=== PATIENT | female | born 1960 | race Caucasian/White ===

== ENCOUNTER 2021-03-24 00:02 | Inpatient (IN) | payer MEDICARE ==
[~2021-03-24] VITALS: Ht 165.1 cm; Wt 104.3 kg
[~2021-03-24 00:02] MED LIST: PANTOPRAZOLE SO20 MG PO
[2021-03-24 00:49] LABS: HEMOGLOBIN 13.3 gm/dl (12.3-15.3); RED BLOOD COUNT 4.15 M/UL (4.00-5.10)
[2021-03-24] MEDS ORDERED: K-TAB ER10 MEQ PO (14:26)
[2021-03-24] MEDS ORDERED: BUMETANIDE2 MG PO (14:26)
[2021-03-24] MEDS ORDERED: AMITRIPTYLINE H50 MG PO (14:26)
[2021-03-24] MEDS ORDERED: CLONAZEPAM1 MG PO (14:27)
[2021-03-24] MEDS ORDERED: CATAPRES 0.1MG0.1 MG PO (14:27)
[2021-03-24] MEDS ORDERED: GABAPENTIN800 MG PO (14:28)
[2021-03-24] MEDS ORDERED: PROZAC 20 MG CA20 MG PO (14:28)
[2021-03-24] MEDS ORDERED: OMEPRAZOLE20 M1 PO (14:28)
[2021-03-24 23:46] LABS: BORDETELLA PARAPERTUSSIS Not Detected (Not Detectd); BORDETELLA PERTUSSIS Not Detected (Not Detectd); CHLAMYDIA PNEUMONIAE Not Detected (Not Detectd); CORONAVIRUS HKU1 Not Detected (Not Detectd); CORONAVIRUS NL63 Not Detected (Not Detectd); CORONAVIRUS OC43 Not Detected (Not Detectd); CORONOAVIRUS 229E Not Detected (Not Detectd); HUMAN METAPNEUMOVIRUS Not Detected (Not Detectd); HUMAN RHINOVIRUS/ENTEROVIRUS Not Detected (Not Detectd); INFLUENZA A Not Detected (Not Detectd); INFLUENZA B Not Detected (Not Detectd); MYCOPLASMA PNEUMONIAE Not Detected (Not Detectd); PARAINFLUENZA VIRUS 1 Not Detected (Not Detectd); PARAINFLUENZA VIRUS 2 Not Detected (Not Detectd); PARAINFLUENZA VIRUS 3 Not Detected (Not Detectd); PARAINFLUENZA VIRUS 4 Not Detected (Not Detectd); RESPIRATORY SYNCYTIAL VIRUS Not Detected (Not Detectd)
[2021-03-25 00:51] LABS: SARS-CoV-2 NOT DETECTED (Not Detectd)
[2021-03-25 05:14] LABS: HEMOGLOBIN 12.9 gm/dl (12.3-15.3); RED BLOOD COUNT 4.05 M/UL (4.00-5.10); WHITE BLOOD COUNT 12.2 K/UL (4.5-11.0)
[2021-03-26 04:37] LABS: HEMOGLOBIN 11.8 gm/dl (12.3-15.3); RED BLOOD COUNT 3.81 M/UL (4.00-5.10)
[2021-03-26 04:43] LABS: WHITE BLOOD COUNT 6.5 K/UL (4.5-11.0)
[2021-03-26 04:49] LABS: BUN/CREATININE RATIO 36 (0-10)
[2021-03-27] MEDS ORDERED: GABAPENTIN800 MG PO (11:42)
[2021-03-28 04:55] LABS: BUN/CREATININE RATIO 34 (0-10)
[2021-03-28] MEDS ORDERED: LEVOFLOXACIN750 MG PO (10:11)
[2021-03-28] MEDS ORDERED: PROAIR HFA8.5 GM INH (10:16)
[2021-03-28] MEDS ORDERED: NEBULIZER UNIT NEB (10:16)
[2021-03-28] MEDS ORDERED: IPRAT-ALBUT 0.5-3 ML INH (10:16)
[2021-03-28] MEDS ORDERED: MEDROL DOSEPAK 24 MG PO (10:16)
[2021-03-28] MEDS ORDERED: PULMICORT FLEX90 MCG INH (10:16)
[2021-03-28] MEDS ORDERED: AMLODIPINE BESYL5 MG PO (10:38)
== END 2021-03-28 14:50 | disposition home health service (06) | DRG 193 ==
LOC: ER1 00:02 → PROG CARE 03:22 → CDU 03:22 → PROG CARE 19:37
PROVIDERS: Student in an Organized Health Care Education/Training Program; ADMIT Internal Medicine
PROC: 5A09457 Assistance with Respiratory Ventilation, 24-96 Consecutive Hours, Continuous Positive Airway Pressure (ICD-10-PCS; principal; 2021-03-24)
DX: J15.9 Unspecified bacterial pneumonia (principal); I21.A1 Myocardial infarction type 2; G92 Toxic encephalopathy; J96.21 Acute and chronic respiratory failure with hypoxia; J96.22 Acute and chronic respiratory failure with hypercapnia; E66.2 Morbid (severe) obesity with alveolar hypoventilation; J44.0 Chronic obstructive pulmonary disease with (acute) lower respiratory infection; N17.9 Acute kidney failure, unspecified; N30.00 Acute cystitis without hematuria; J44.1 Chronic obstructive pulmonary disease with (acute) exacerbation; I12.0 Hypertensive chronic kidney disease with stage 5 chronic kidney disease or end stage renal disease; Z20.822 Contact with and (suspected) exposure to COVID-19; G47.33 Obstructive sleep apnea (adult) (pediatric); I27.20 Pulmonary hypertension, unspecified; N18.30 Chronic kidney disease, stage 3 unspecified; F17.200 Nicotine dependence, unspecified, uncomplicated; B96.4 Proteus (mirabilis) (morganii) as the cause of diseases classified elsewhere; R73.9 Hyperglycemia, unspecified; T38.0X5A Adverse effect of glucocorticoids and synthetic analogues, initial encounter; D53.9 Nutritional anemia, unspecified; Z93.3 Colostomy status; Z98.890 Other specified postprocedural states; Z88.0 Allergy status to penicillin; Z90.49 Acquired absence of other specified parts of digestive tract; Z93.0 Tracheostomy status; Z82.49 Family history of ischemic heart disease and other diseases of the circulatory system; Z79.899 Other long term (current) drug therapy; Z79.52 Long term (current) use of systemic steroids; Z68.38 Body mass index [BMI] 38.0-38.9, adult
CPT/HCPCS: ECHO; 36415; 36600; 70450; 71045; 71046; 71250; 72125; 80048; 80053; 80202; 80307; 81001; 82550; 82553; 82607; 82746; 82803; 83036; 83605; 83874; 83880; 83921; 84439; 84443; 84484; 85025; 85027; 87040; 87077; 87086; 87186; 87633; 93005; 93306; 94640; 94660; 94760; 96374; 97116-GP-CQ; 97162; 97530; 99285; J0456; J0692; J0696; J1650; J1940; J2920; J3370; J7030; J7070; U0002

== ENCOUNTER 2021-04-19 20:58 | Inpatient (IN) | payer MEDICARE ==
[~2021-04-19] VITALS: Ht 165.1 cm; Wt 104.3 kg
[~2021-04-19 20:58] MED LIST changes: +AMITRIPTYLINE H50 MG PO; +AMLODIPINE BESYL5 MG PO; +BUMETANIDE2 MG PO; +CATAPRES 0.1MG0.1 MG PO; +CLONAZEPAM1 MG PO; +GABAPENTIN800 MG PO; +IPRAT-ALBUT 0.5-3 ML INH; +K-TAB ER10 MEQ PO; +LEVOFLOXACIN750 MG PO; +MEDROL DOSEPAK 24 MG PO; +NEBULIZER UNIT NEB; +OMEPRAZOLE20 M1 PO; +PROAIR HFA8.5 GM INH; +PROZAC 20 MG CA20 MG PO; +PULMICORT FLEX90 MCG INH
[2021-04-19 21:48] LABS: HEMOGLOBIN 15.7 gm/dl (12.3-15.3); RED BLOOD COUNT 4.85 M/UL (4.00-5.10); WHITE BLOOD COUNT 8.8 K/UL (4.5-11.0)
[2021-04-19 22:25] LABS: BUN/CREATININE RATIO 32 (0-10)
[2021-04-20 02:01] LABS: WHITE BLOOD COUNT 7.6 K/UL (4.5-11.0)
[2021-04-20 02:04] LABS: HEMOGLOBIN 13.7 gm/dl (12.3-15.3); RED BLOOD COUNT 4.34 M/UL (4.00-5.10)
[2021-04-20] MEDS ORDERED: PREDNISONE10 MG PO (03:01)
[2021-04-20] MEDS ORDERED: METOCLOPRAMIDE10 MG PO (03:01)
--- NOTE | 2021-04-20 22:44 | NUR ---
2230- CHECKED RESIDUAL ON TUBE FEED, 10ML WITHDREW AND REPLACED VIA OG. INCREASED TUBE FEEDING FROM 25ML/HR TO 30ML/HR. WILL CONTINUE TO MONITOR.
[2021-04-21 04:39] LABS: HEMOGLOBIN 11.6 gm/dl (12.3-15.3); RED BLOOD COUNT 3.67 M/UL (4.00-5.10); WHITE BLOOD COUNT 5.5 K/UL (4.5-11.0)
[2021-04-22 05:34] LABS: HEMOGLOBIN 12.3 gm/dl (12.3-15.3); RED BLOOD COUNT 3.88 M/UL (4.00-5.10); WHITE BLOOD COUNT 5.5 K/UL (4.5-11.0)
[2021-04-22 06:41] LABS: BUN/CREATININE RATIO 47 (0-10)
[2021-04-23 04:54] LABS: HEMOGLOBIN 12.5 gm/dl (12.3-15.3); RED BLOOD COUNT 3.92 M/UL (4.00-5.10); WHITE BLOOD COUNT 4.8 K/UL (4.5-11.0)
[2021-04-23 05:18] LABS: BUN/CREATININE RATIO 48 (0-10)
[2021-04-24 04:58] LABS: HEMOGLOBIN 13.5 gm/dl (12.3-15.3); RED BLOOD COUNT 4.25 M/UL (4.00-5.10)
[2021-04-24 04:59] LABS: WHITE BLOOD COUNT 6.8 K/UL (4.5-11.0)
[2021-04-24 05:22] LABS: BUN/CREATININE RATIO 33 (0-10)
[2021-04-25 05:35] LABS: HEMOGLOBIN 13.4 gm/dl (12.3-15.3); RED BLOOD COUNT 4.26 M/UL (4.00-5.10); WHITE BLOOD COUNT 8.5 K/UL (4.5-11.0)
[2021-04-25 05:58] LABS: BUN/CREATININE RATIO 26 (0-10)
[2021-04-26 09:28] LABS: HEMOGLOBIN 13.3 gm/dl (12.3-15.3); RED BLOOD COUNT 4.26 M/UL (4.00-5.10); WHITE BLOOD COUNT 7.9 K/UL (4.5-11.0)
[2021-04-26 10:06] LABS: BUN/CREATININE RATIO 20 (0-10)
--- NOTE | 2021-04-27 04:19 | NUR ---
pt has not voided bladderscan performed with result of 241. educated pt on fluid consumption to help produce urine.
[2021-04-27 09:29] LABS: HEMOGLOBIN 14.2 gm/dl (12.3-15.3); RED BLOOD COUNT 4.48 M/UL (4.00-5.10); WHITE BLOOD COUNT 9.7 K/UL (4.5-11.0)
[2021-04-27 09:45] LABS: BUN/CREATININE RATIO 20 (0-10)
[2021-04-28 07:53] LABS: HEMOGLOBIN 11.8 gm/dl (12.3-15.3); RED BLOOD COUNT 3.85 M/UL (4.00-5.10); WHITE BLOOD COUNT 7.1 K/UL (4.5-11.0)
[2021-04-28 08:33] LABS: BUN/CREATININE RATIO 28 (0-10)
--- NOTE | 2021-04-28 13:50 | NUR ---
REPORT CALLED TO [facility] AT 1350 TO [facility].
== END 2021-04-28 15:30 | disposition home health service (06) | DRG 208 ==
LOC: ER1 20:58 → CDU 23:57 → MED SURG 4 23:57 → CCU 23:57 → MED SURG 4 04-24 14:53
PROVIDERS: Emergency Medicine; Internal Medicine; Internal Medicine Infectious Disease; ADMIT Internal Medicine
PROC: 0BH17EZ Insertion of Endotracheal Airway into Trachea, Via Natural or Artificial Opening (ICD-10-PCS; principal; 2021-04-19)
PROC: 5A1945Z Respiratory Ventilation, 24-96 Consecutive Hours (ICD-10-PCS; 2021-04-19)
DX: J96.22 Acute and chronic respiratory failure with hypercapnia (principal); I50.33 Acute on chronic diastolic (congestive) heart failure; E66.2 Morbid (severe) obesity with alveolar hypoventilation; J44.1 Chronic obstructive pulmonary disease with (acute) exacerbation; J44.0 Chronic obstructive pulmonary disease with (acute) lower respiratory infection; G93.49 Other encephalopathy; Z68.41 Body mass index [BMI] 40.0-44.9, adult; E86.0 Dehydration; J96.21 Acute and chronic respiratory failure with hypoxia; I27.20 Pulmonary hypertension, unspecified; E87.5 Hyperkalemia; F32.A Depression, unspecified; K21.9 Gastro-esophageal reflux disease without esophagitis; F17.210 Nicotine dependence, cigarettes, uncomplicated; R53.81 Other malaise; F41.9 Anxiety disorder, unspecified; I11.0 Hypertensive heart disease with heart failure; Z91.14 Patient's other noncompliance with medication regimen; Z93.0 Tracheostomy status; Z90.49 Acquired absence of other specified parts of digestive tract; Z88.0 Allergy status to penicillin
CPT/HCPCS: 31500; 36415; 36600; 51702; 70450; 71045; 80048; 80053; 80202; 80307; 81001; 82140; 82550; 82553; 82803; 82810; 83605; 83690; 83735; 83874; 83880; 84100; 84439; 84443; 84484; 84550; 85025; 85027; 85610; 85730; 87040; 87070; 87086; 87205; 93005; 94002; 94003; 94640; 94660; 94664; 94760; 96365; 96375; 97116-GP-CQ; 97162; 97166; 97530-GP-CQ; 97535; 99285; C9113; G0480; J0692; J1120; J1205; J1650; J2250; J2704; J2920; J2930; J3370; J7030; J7070; U0002

== ENCOUNTER 2021-07-22 20:50 | Inpatient (IN) | payer MEDICARE ==
[~2021-07-22] VITALS: Ht 165.1 cm; Wt 130.4 kg
[~2021-07-22 20:50] MED LIST changes: +METOCLOPRAMIDE10 MG PO; +PREDNISONE10 MG PO
[2021-07-22 21:32] LABS: HEMOGLOBIN 13.5 gm/dl (12.3-15.3); RED BLOOD COUNT 4.33 M/UL (4.00-5.10); WHITE BLOOD COUNT 10.9 K/UL (4.5-11.0)
[2021-07-22 21:37] LABS: BUN/CREATININE RATIO 23 (0-10)
[2021-07-23 16:16] LABS: ACINETOBACTER BAUMANNII Not Detected (Negative); CANDIDA ALBICANS Not Detected (Negative); CANDIDA KRUSEI Not Detected (Negative); CANDIDA TROPICALIS Not Detected (Negative); ENTEROCOCCUS Not Detected (Negative); ESCHERICHIA COLI Not Detected (Negative); HAEMOPHILUS INFLUENZAE Not Detected (Negative); KLEBSIELLA OXYTOCA Not Detected (Negative); KLEBSIELLA PNEUMONIAE Not Detected (Negative); KPC-CARBAPENEM-RESISTANCE GENE Not Detected (Negative); PROTEUS Not Detected (Negative); PSEUDOMONAS AERUGINOSA Not Detected (Negative); SERRATIA MARCESANS Not Detected (Negative); STAPHYLOCOCCUS AUREUS Not Detected (Negative); STREP AGALACTIAE (GROUP B) Not Detected (Negative); STREP PYOGENES (GROUP A) Not Detected (Negative); STREPTOCOCCUS Not Detected (Negative); vanA/B (VANCOMYCIN RESIST GENE Not Detected (Negative)
[2021-07-23] MEDS ORDERED: GABAPENTIN400 MG PO (16:44)
[2021-07-23] MEDS ORDERED: VITAMIN D21250 MCG PO (16:45)
[2021-07-23] MEDS ORDERED: PREDNISONE 10 M10 MG PO (16:45)
[2021-07-23 17:37] LABS: STAPHYLOCOCCUS DETECTED (Negative); mecA (METHICILLIN RESIST GENE DETECTED (Negative)
[2021-07-24 03:30] LABS: HEMOGLOBIN 13.6 gm/dl (12.3-15.3); RED BLOOD COUNT 4.23 M/UL (4.00-5.10)
[2021-07-25 03:54] LABS: HEMOGLOBIN 13.1 gm/dl (12.3-15.3); RED BLOOD COUNT 4.21 M/UL (4.00-5.10)
[2021-07-30 03:31] LABS: RED BLOOD COUNT 3.6 M/UL (4.00-5.10); WHITE BLOOD COUNT 8.4 K/UL (4.5-11.0)
[2021-07-30 03:36] LABS: HEMOGLOBIN 11.1 gm/dl (12.3-15.3)
[2021-07-30] MEDS ORDERED: BUDESONIDE0.5 MG/2 M NEB (14:30)
[2021-07-30] MEDS ORDERED: MEDROL DOSEPAK 24 MG PO (14:30)
[2021-07-30] MEDS ORDERED: IPRAT-ALBUT 0.5-3 ML NEB (14:30)
[2021-07-30] MEDS ORDERED: BROVANA15 MCG/2 M NEB (14:30)
--- NOTE | 2021-07-30 15:38 | NUR ---
PT TRILOGY BEING DELIVERED AT 1600 TO PT RESIDENCE PER ENA ANANTH [employer] SUPPLY AND COSMETOLOGY EDUCATOR. PORTABLE O2 DELIVERED TO PT ROOM. PT GIVEN F/U INSTRCTIONS AND DC EDUCATION. FAMILY PRESENT IN ROOM TO TRANSPORT PT HOME.
== END 2021-07-30 16:00 | disposition home or self-care (01) | DRG 291 ==
LOC: ER1 20:50 → CDU 07-23 00:54 → PROG CARE 07-23 00:54
PROVIDERS: Emergency Medicine; Internal Medicine; ADMIT Internal Medicine
PROC: 5A09357 Assistance with Respiratory Ventilation, Less than 24 Consecutive Hours, Continuous Positive Airway Pressure (ICD-10-PCS; 2021-07-23)
PROC: 5A0945A Assistance with Respiratory Ventilation, 24-96 Consecutive Hours, High Flow/Velocity Cannula (ICD-10-PCS; principal; 2021-07-24)
PROC: 5A0935Z Assistance with Respiratory Ventilation, Less than 24 Consecutive Hours (ICD-10-PCS; 2021-07-26)
DX: I11.0 Hypertensive heart disease with heart failure (principal); I50.33 Acute on chronic diastolic (congestive) heart failure; Z20.822 Contact with and (suspected) exposure to COVID-19; J96.21 Acute and chronic respiratory failure with hypoxia; J96.22 Acute and chronic respiratory failure with hypercapnia; G93.41 Metabolic encephalopathy; J44.1 Chronic obstructive pulmonary disease with (acute) exacerbation; N30.00 Acute cystitis without hematuria; N17.9 Acute kidney failure, unspecified; E66.2 Morbid (severe) obesity with alveolar hypoventilation; Z68.42 Body mass index [BMI] 45.0-49.9, adult; J44.9 Chronic obstructive pulmonary disease, unspecified; F41.9 Anxiety disorder, unspecified; F32.A Depression, unspecified; B95.7 Other staphylococcus as the cause of diseases classified elsewhere; I27.20 Pulmonary hypertension, unspecified; E66.01 Morbid (severe) obesity due to excess calories; K21.9 Gastro-esophageal reflux disease without esophagitis; Z88.0 Allergy status to penicillin; Z79.82 Long term (current) use of aspirin; Z79.899 Other long term (current) drug therapy; Z91.14 Patient's other noncompliance with medication regimen; Z93.0 Tracheostomy status; Z87.891 Personal history of nicotine dependence; Z93.1 Gastrostomy status
CPT/HCPCS: 0240U; 36415; 36600; 51702; 70450; 71045; 72125; 80048; 80053; 80307; 81001; 82140; 82550; 82553; 82803; 82962; 83036; 83605; 83735; 83874; 83880; 84439; 84443; 84484; 85025; 85027; 87040; 87077; 87150; 87186; 94640; 94660; 94664; 94760; 96374; 96375; 96376; 99285; J1650; J1940; J1956; J2920; J3370; J3475; J7050; J7070; Q9967